=== PATIENT | male | born 1975 | race Caucasian/White ===

== ENCOUNTER 2016-08-12 18:54 | Emergency (ER) | payer SELFPAY ==
[~2016-08-12] VITALS: Wt 106.6 kg
[~2016-08-12 18:54] MED LIST: ACULAR 3ML 3 ML5 ML OPH; AMLODIPINE-OLM1 EAC1 PO; AMOXICILLIN500 M3 PO; AMOXICILLIN500 MG PO; ANAPROX DS550 MG PO; AUGMENTIN 875-875 MG PO; BACTRIM DS 8001 TA1 PO; CEPHALEXIN500 M1 PO; CLEOCIN HCL150 MG PO; DOXYCYCLINE HY100 M3 PO; FLEXERIL10 MG PO; FLEXERIL5 MG PO; HYDROCODONE BIT1 T11 PO; IBU-8800 MG PO; INDOCIN50 MG PO; INDOMETHACIN50 MG PO; MOTRIN800 MG PO; Motrin,Rufen800 MG PO; NAPROSYN500 MG PO; NKHM; NORCO 5-325 TA1 EACH PO; PEN-VEE K500 MG PO; PEN-VK500 MG PO; PREDNICOT20 MG PO; PREDNISONE20 MG PO; ROBITUSSIN AC 110 ML PO; TRAMADOL HCL50 MG PO; TYLENOL W/CODEI1 TA2 PO; ULTRAM50 MG PO; VICODIN 5/500 505 MG PO; ZITHROMAX Z PA250 MG PO
[2016-08-12] MEDS ORDERED: CEPHALEXIN500 M1 PO (19:25)
== END 2016-08-12 19:41 | disposition home or self-care (01) ==
LOC: ED 18:54
DX: S61.411A Laceration without foreign body of right hand, initial encounter (principal); F17.200 Nicotine dependence, unspecified, uncomplicated; W01.0XXA Fall on same level from slipping, tripping and stumbling without subsequent striking against object, initial encounter; Y93.89 Activity, other specified; Y92.9 Unspecified place or not applicable; Y99.9 Unspecified external cause status

== ENCOUNTER 2017-06-30 20:03 | Emergency (ER) | payer SELFPAY ==
[~2017-06-30] VITALS: Ht 180.3 cm; Wt 1.0 kg
[2017-06-30] MEDS ORDERED: NORCO 5-325 TA1 EACH PO (20:22)
[2017-06-30] MEDS ORDERED: AMOXICILLIN500 M2 PO (20:40)
[2017-06-30] MEDS ORDERED: NAPROSYN500 MG PO (20:41)
== END 2017-06-30 20:45 | disposition home or self-care (01) ==
LOC: ED 20:03
DX: K08.89 Other specified disorders of teeth and supporting structures (principal); F17.200 Nicotine dependence, unspecified, uncomplicated

== ENCOUNTER 2017-08-18 20:04 | Emergency (ER) | payer SELFPAY ==
[~2017-08-18] VITALS: Ht 180.3 cm; Wt 102.1 kg
[~2017-08-18 20:04] MED LIST changes: +AMOXICILLIN500 M2 PO
[2017-08-18] MEDS ORDERED: AMOXICILLIN500 M2 PO (20:22)
== END 2017-08-18 20:29 | disposition home or self-care (01) ==
LOC: ED 20:04
DX: K08.89 Other specified disorders of teeth and supporting structures (principal); F17.200 Nicotine dependence, unspecified, uncomplicated; Z98.890 Other specified postprocedural states

== ENCOUNTER 2017-10-10 04:07 | Emergency (ER) | payer SELFPAY ==
[~2017-10-10] VITALS: Ht 180.3 cm; Wt 106.6 kg
[2017-10-10] MEDS ORDERED: CLINDAMYCIN150 MG PO (04:16)
[2017-10-10] MEDS ORDERED: NAPROSYN500 MG PO (04:16)
== END 2017-10-10 04:42 | disposition home or self-care (01) ==
LOC: ED 04:07
DX: K02.9 Dental caries, unspecified (principal); F17.200 Nicotine dependence, unspecified, uncomplicated; Z98.890 Other specified postprocedural states

== ENCOUNTER 2017-10-13 16:37 | Emergency (ER) | payer SELFPAY ==
[~2017-10-13] VITALS: Ht 180.3 cm; Wt 106.6 kg
[~2017-10-13 16:37] MED LIST changes: +CLINDAMYCIN150 MG PO
[2017-10-13] MEDS ORDERED: CYCLOBENZAPRINE5 M3 PO (18:32)
== END 2017-10-13 18:40 | disposition home or self-care (01) ==
LOC: ED 16:37
DX: S29.011A Strain of muscle and tendon of front wall of thorax, initial encounter (principal); R07.81 Pleurodynia; Z98.890 Other specified postprocedural states; X50.1XXA Overexertion from prolonged static or awkward postures, initial encounter; Y93.89 Activity, other specified; Y92.69 Other specified industrial and construction area as the place of occurrence of the external cause; Y99.9 Unspecified external cause status

== ENCOUNTER 2017-11-21 19:31 | Emergency (ER) | payer SELFPAY ==
[~2017-11-21] VITALS: Ht 177.8 cm; Wt 106.6 kg
[~2017-11-21 19:31] MED LIST changes: +CYCLOBENZAPRINE5 M3 PO
[2017-11-21] MEDS ORDERED: DOXYCYCLINE100 M3 PO (19:42)
== END 2017-11-21 20:41 | disposition home or self-care (01) ==
LOC: ED 19:31
DX: H66.91 Otitis media, unspecified, right ear (principal); Z98.890 Other specified postprocedural states

== ENCOUNTER 2018-02-14 05:33 | Emergency (ER) | payer SELFPAY ==
[~2018-02-14] VITALS: Ht 177.8 cm; Wt 106.6 kg
[~2018-02-14 05:33] MED LIST changes: +DOXYCYCLINE100 M3 PO
[2018-02-14] MEDS ORDERED: CLEOCIN HCL300 MG PO (05:54)
== END 2018-02-14 06:05 | disposition home or self-care (01) ==
LOC: ED 05:33
DX: H66.90 Otitis media, unspecified, unspecified ear (principal); K08.89 Other specified disorders of teeth and supporting structures; K04.01 Reversible pulpitis; F10.10 Alcohol abuse, uncomplicated

== ENCOUNTER 2018-02-14 07:36 | Emergency (ER) | payer SELFPAY ==
[~2018-02-14] VITALS: Wt 106.6 kg
[~2018-02-14 07:36] MED LIST changes: +CLEOCIN HCL300 MG PO
== END 2018-02-14 08:47 | disposition home or self-care (01) ==
LOC: ED 07:36
DX: K02.9 Dental caries, unspecified (principal); F10.10 Alcohol abuse, uncomplicated

== ENCOUNTER 2018-05-29 05:17 | Emergency (ER) | payer MEDICAID ==
[~2018-05-29] VITALS: Ht 180.3 cm; Wt 108.9 kg
[2018-11-26] MEDS ORDERED: Motrin,Rufen800 MG PO (16:25)
== END 2018-05-29 05:38 | disposition home or self-care (01) ==
LOC: ED 05:17
DX: K02.9 Dental caries, unspecified (principal); Z79.2 Long term (current) use of antibiotics

== ENCOUNTER 2018-06-06 01:55 | Emergency (ER) | payer SELFPAY ==
[~2018-06-06] VITALS: Ht 180.3 cm; Wt 108.9 kg
[2018-06-06] MEDS ORDERED: PENICILLIN-VK500 M1 PO (02:37)
== END 2018-06-06 02:43 | disposition home or self-care (01) ==
LOC: ED 01:55
DX: K02.9 Dental caries, unspecified (principal); K04.01 Reversible pulpitis; M27.69 Other endosseous dental implant failure

== ENCOUNTER 2018-06-12 13:08 | Inpatient (IN) | payer OTHER ==
[~2018-06-12] VITALS: Ht 177.8 cm; Wt 122.1 kg
--- NOTE | ~2018-06-12 | EKG ---
[place], [place] ELECTROCARDIOGRAM REPORT NAME: SOPHIA GOLDBERG UNIT #: [id number] ROOM: 411 DOCTOR: MARÍA DRAFT REPORT BIRTHDATE: [birth year] [facility] Test Date: 2018-06-12 Test Time: 14:01:26 Pat Name: SOPHIA GOLDBERG Department: Room: 411 Gender: M Dispatch Coordinator: : 1975 Requested By: ALEXANDRA THORNTON Order Number: [id number] Reading MD: Measurements Intervals [place] Rate: 100 P: 75 MN: 161 QRS: 34 QRSD: 84 T: 46 QT: 336 QTc: 434 Interpretive Statements Sinus tachycardia No previous ECG available for comparison CM:EKGRPT:ELECTROCARDIOGRAM REPORT 1401 [id number] ALEXANDRA POLK DRAFT REPORT ALEXANDRA THORNTON DO
--- NOTE | ~2018-06-12 | CON ---
[place], [place] REPORT OF CONSULTATION NAME: SOPHIA GOLDBERG UNIT #: [id number] ROOM: 411 DOCTOR: BELLA FRANCIS DMD BIRTHDATE: [birth year] DOS: This consultation is for facial swelling. On exam, the patient was admitted yesterday for upper left facial swelling. The patient states today that swelling has improved and pain has as well. On exam, minimal facial swelling noted. No dyspnea or dysphagia. Intraoral exam shows extensive disrepair multiple teeth caries to the gumline. The patient had multiple teeth removed roughly a month ago in the mandibular left. Discussed treatment needed including full mouth extraction, alveoplasty and dentures. No intraoral abscess is noted nor fluctuant areas for drainage. Recommend extraction of offending teeth in the office for potential full mouth extraction under general. The patient is to look into insurance and contact the office for treatment. The patient is okay for dental discharge. BELLA FRANCIS DMD CM:CONSTR:REPORT OF CONSULTATION [id number] 06/14/18 1021 interface
[~2018-06-12 13:08] MED LIST changes: +PENICILLIN-VK500 M1 PO
[2018-06-12 13:09] VITALS: BP 210/141
[2018-06-12 13:23] VITALS: BP 182/98
--- NOTE | 2018-06-12 13:37 | NUR ---
Pt continues to pace in his room holding head.
[2018-06-12 14:04] LABS: BASO # 0.1 10*3/uL (0.0-0.1); BASO % 0.9 % (0.0-1.0); EOS # 0.3 10*3/uL (0.0-0.4); EOS % 2.6 % (1.0-4.0); HEMATOCRIT 47.1 % (42.0-52.0); LYMPH # 2.3 10*3/uL (1.3-4.4); LYMPH % 23.6 % (27.0-41.0); MEAN CELL VOLUME 95.9 fl (80.0-94.0); MEAN CORPUSCULAR HGB 32.6 pg (27.0-31.0); MEAN PLATELET VOLUME 11.4 fl (9.6-12.3); MONO # 0.7 10*3/uL (0.1-1.0); MONO % 7.3 % (3.0-9.0); NEUT # 6.4 10*3/uL (2.3-7.9); NEUT % 65.2 % (47.0-73.0); PLATELET COUNT AUTOMATED 224 10*3/uL (130-400); RED BLOOD COUNT 4.91 10*6/uL (4.50-5.90); RED CELL DISTRI WIDTH 13.8 % (0-14.5); WHITE BLOOD COUNT 9.7 10*3/uL (4.8-10.8)
--- NOTE | 2018-06-12 14:17 | NUR ---
Pt stated that the medication did not help his pain, rated pain as 10/10.
[2018-06-12 14:20] LABS: ACT PARTIAL THROMBO TIME 23.1 SECONDS (20.8-31.5); INTERNATIONAL NORM RATIO 0.9 (2.0-3.5)
--- NOTE | 2018-06-12 14:24 | NUR ---
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
[2018-06-12 14:26] LABS: ALBUMIN 3.9 gm/dl (3.1-4.5); ALKALINE PHOSPHATASE 74 U/L (45-117); BUN 16 mg/dl (7-24); CHLORIDE 105 mmol/L (98-107); CREATININE 1.01 mg/dL (0.70-1.30); LIPASE 201 U/L (73-393); POTASSIUM 4.1 mmol/L (3.5-5.1); SGOT/AST 14 IU/L (3-35); SGPT/ALT 28 U/L (12-78); SODIUM 139 mmol/L (136-145); TOTAL PROTEIN 7.6 gm/dL (6.4-8.2)
[2018-06-12 14:31] LABS: TROPONIN I < 0.015 ng/ml (<0.045)
--- NOTE | 2018-06-12 15:15 | NUR ---
Pt currently drinking Pepsi, no distress noted.
[2018-06-12 15:37] VITALS: BP 188/102
--- NOTE | 2018-06-12 15:37 | NUR ---
Time: 1536 A 42 year old MALE admitted to under services of MYLES DENG DO, Pt. arrived via bed from ER. Chief complaint: INTRACTABLE PAIN. FREIDA FULLER
--- NOTE | 2018-06-12 15:50 | NUR ---
GABBI INFORMED OF MEDICATION VERIFIED. ALSO, INFORMED OF CURRENT TOOTH PAIN OF 10 WITH MANUAL VX=281/102. STATES OK, MORPHINE PRN TO BE PROVIDED.
[2018-06-12 16:00] VITALS: BP 188/102
--- NOTE | 2018-06-12 16:00 | NUR ---
PATIENT MEDICATED WITH MORPHINE FOR C/O 10/10 LEFT SIDE TOOTH PAIN. WILL MONITOR. HEATED BLANKS PROVED TO SIDE OF FACE.
--- NOTE | 2018-06-12 17:00 | NUR ---
PATIENTLEFT SIDED DENTAL PAIN 8/10 DOWN FROM 02/08 WITH HELP FROM MORPHINE AND ICE. WILL MONITOR
--- NOTE | 2018-06-12 17:38 | NUR ---
LEFT BRIEF MESSAGE ON FOR NEW CONSULT. AWAITING CALL-BACK.
--- NOTE | 2018-06-12 17:52 | NUR ---
INFORMED OF CT MAXILLOFACIAL RESULTS AND INFORMED THAT PATIENT IS STILL HAVING PAIN 12/09 WITH NO RELIEF FROM PAIN MEDICATIONS. INQUIRED IF DENTAL BALL WOULD BE APPROPIATE AT THIS TIME. STATES HE WILL ORDER IT.
--- NOTE | 2018-06-12 19:47 | NUR ---
PATIENT MEDICATED WITH IV MORPHINE AND PO TYLENOL PER PRN ORDER FOR C/O PAIN IN L SIDE OF MOUTH RATED 12/10. WILL MONITOR EFFECTIVENESS.
[2018-06-12 20:00] VITALS: BP 177/115
[2018-06-12 20:15] VITALS: BP 168/108
--- NOTE | 2018-06-12 20:17 | NUR ---
PATIENT STATES EARLIER MEDICATIONS TOOK PAIN FROM 12 TO 8, BUT HE STATES HE IS STILL IN A GREAT DEAL OF PAIN. MANUAL BP 168/108. WILL NOTIFY
--- NOTE | 2018-06-12 20:23 | NUR ---
NOTIFIED OF PATIENT'S CONTINUED C/O PAIN IN MOUTH RATED 8/10 FOLLOWING IV MORPHINE AND PO TYLENOL ADMINISTRATION. ALSO DISCUSSED BP 168/108 MANUALLY.
--- NOTE | 2018-06-12 20:54 | NUR ---
IV TORADOL ADMINISTERED PER ONE TIME ORDER. PATIENT RATING PAIN 10/10. WILL MONITOR. CALL LIGHT IN REACH.
--- NOTE | 2018-06-12 21:35 | NUR ---
PATIENT STATES PAIN HAS GREATLY IMPROVED FOLLOWING IV TORADOL ADMINISTRATION. PATIENT STATES "IT DOESN'T HURT HARDLY AT ALL." WILL NOTIFY OF RESULTS WITH USE OF TORADOL. PATIENT'S GIRLFRIEND STILL IN ROOM AT THIS TIME. DISCUSSED HOSPITAL VISITATION POLICY AND POLITELY ASKED GIRLFRIEND TO LEAVE. STATES SHE DOES NOT HAVE RIDE HOME. OFFERED TO LET PATIENT STAY IN VISITOR'S LOBBY. PATIENT/GIRLFRIEND STATE THEY WILL MAKE SOME CALLS AND FIND HER A RIDE HOME.
--- NOTE | 2018-06-12 23:22 | NUR ---
IV MORPHINE ADMINISTERED PER PRN ORDER FOR C/O MOUTH PAIN 11/08. WILL MONITOR EFFECTIVENESS. CALL LIGHT IN REACH.
--- NOTE | 2018-06-12 23:36 | NUR ---
IV MORPHINE ADMINISTERED PER PRN ORDER FOR C/O MOUTH PAIN 11/08. WILL MONITOR EFFECTIVENESS. CALL LIGHT IN REACH.
--- NOTE | 2018-06-12 23:57 | NUR ---
NOTIFIED OF IV TORADOL WORKING BETTER THAN IV MORPHINE. WILL REVIEW ORDERS.
[2018-06-13] VITALS: BP 190/114
--- NOTE | 2018-06-13 03:06 | NUR ---
NOTIFIED OF PATIENT'S BP STILL 184/112 MANUALLY. IV TORADOL ADMINISTERED FOR PAIN IN MOUTH RATED 8/10. DISCUSSED OTHER PRN MEDICATIONS GIVEN WITHOUT DECREASE IN BLOOD PRESSURE. INSTRUCTED TO GIVE TIME FOR IV TORADOL TO WORK AND RECHECK BLOOD PRESSURE.
--- NOTE | 2018-06-13 03:42 | NUR ---
PATIENT STILL RATING PAIN 11/05. BP 178/114 MANUALLY. NOTIFIED. NEW ORDER RECEIVED FOR PO LISINOPRIL 10 MG DAILY WITH 1ST DOSE STARTING NOW.
[2018-06-13 03:45] VITALS: BP 178/114
[2018-06-13 06:34] LABS: ALBUMIN 3.4 gm/dl (3.1-4.5); BUN 17 mg/dl (7-24); CHLORIDE 106 mmol/L (98-107); CHOLESTEROL 188 mg/dL (<200); CREATININE 0.78 mg/dL (0.70-1.30); PHOSPHOROUS 2.9 mg/dL (2.5-4.9); POTASSIUM 3.6 mmol/L (3.5-5.1); SGOT/AST 15 IU/L (3-35); SGPT/ALT 27 U/L (12-78); SODIUM 138 mmol/L (136-145); TOTAL PROTEIN 6.8 gm/dL (6.4-8.2); TRIGLYCERIDES 262 mg/dl (<150); VLDL CHOLESTEROL 52 mg/dL (6-40)
[2018-06-13 06:36] LABS: BASO # 0.1 10*3/uL (0.0-0.1); BASO % 0.9 % (0.0-1.0); EOS # 0.2 10*3/uL (0.0-0.4); EOS % 2.9 % (1.0-4.0); LYMPH # 2.2 10*3/uL (1.3-4.4); LYMPH % 26.9 % (27.0-41.0); MEAN CELL VOLUME 94.8 fl (80.0-94.0); MEAN CORPUSCULAR HGB 32.2 pg (27.0-31.0); MEAN PLATELET VOLUME 11.9 fl (9.6-12.3); MONO # 0.6 10*3/uL (0.1-1.0); MONO % 7.4 % (3.0-9.0); NEUT # 5.1 10*3/uL (2.3-7.9); NEUT % 61.7 % (47.0-73.0); PLATELET COUNT AUTOMATED 181 10*3/uL (130-400); RED BLOOD COUNT 4.25 10*6/uL (4.50-5.90); RED CELL DISTRI WIDTH 13.8 % (0-14.5); WHITE BLOOD COUNT 8.2 10*3/uL (4.8-10.8)
[2018-06-13 06:37] LABS: HEMATOCRIT 40.3 % (42.0-52.0); HEMOGLOBIN 13.7 g/dl (14.0-18.0)
[2018-06-13 06:40] LABS: ALKALINE PHOSPHATASE 63 U/L (45-117); FREE T4 1.03 ng/dl (0.76-1.46); HDL CHOLESTEROL 34 mg/dl (40-60); LDL CHOLESTEROL 102 mg/dL (9-159); THYROID STIM HORMONE (HS) 0.838 uIU/ml (0.358-4.75)
[2018-06-13 07:19] LABS: VITAMIN D, 25-HYDROXY 14.1 ng/mL (30-100)
--- NOTE | 2018-06-13 07:50 | NUR ---
spoke with and he will be in to see patient this morning. pt placed on monitor and will be given iv lopressor per geo wang's order for htn
[2018-06-13 08:00] VITALS: BP 160/102
--- NOTE | 2018-06-13 08:30 | NUR ---
PT GIVEN IV LOPRESSOR VERY SLOWLY PER ORDER, WILL MONITOR EFFECTIVENESS ALEXIS GORDON
--- NOTE | 2018-06-13 09:00 | NUR ---
Third Rail Installer in to talk to patient. Patient states lives at home with friend. There are few steps in the home. Physician: none Pharmacy: [facility] [place] [facility]: none Patient's level of ADLs: INDEPENDENT Patient has working utilities: all working DME: none Follow-up physician's appointment after d/c: will be made by hospitalist nurse director upon discharge Does patient want to access PORTAL?: no Discharge plan discussed with patient, patient lives at home, is independent in adls and ambulation, patient states he will be going home when able, discussed with him not having any insurance and he stated someone talked to him will help him fill out paperwork to help with the hospital stay. patient states he will need help with paying for medications, his scripts will be sent to the [facility] and will be paid for, no other needs at this time. PATY MICHAEL
--- NOTE | 2018-06-13 09:05 | NUR ---
MEDICATED FOR C/O PAIN IN BOTH CHEEKS, PT RATES PAIN A 7 AT PRESENT, MANUELITO DANGELO IN TO SEE PT ALEXIS JALLOHCC
[2018-06-13 09:08] VITALS: BP 158/98
--- NOTE | 2018-06-13 10:00 | NUR ---
PATIENTS PAIN LEVEL IS A 4 OUT OF 10 NO DISCOMFORT AT TIME OF ASSESSMENT ALEXIS STEPHENSU.RCC
--- NOTE | 2018-06-13 10:16 | NUR ---
PT SEEN BY . TIRE TESTER ARE WORKING ON GETTING PATIENT HELP WITH INSURANCE BECAUSE HE IS SELF PAY. STATES PATIENT CAN SEE HIM IN THE OFFICE AND WILL NEED MULTIPLE TEETH EXCTRACTIONS. OK TO RESUME DIET AT THIS TIME.
--- NOTE | 2018-06-13 10:47 | NUR ---
PATIENT WILL EAT AND SHOWER ONCE HOME BEING DISCHARGED TODAY NO COMPLAINTS AT THIS TIME ALEXIS ALTAMIRANO.RCC
[2018-06-13] MEDS ORDERED: CLINDAMYCIN HC300 MG PO (11:31)
[2018-06-13] MEDS ORDERED: LISINOPRIL10 M1 PO (11:31)
[2018-06-13 11:45] VITALS: BP 140/82
[2018-06-13 12:00] VITALS: BP 130/82
--- NOTE | 2018-06-13 13:05 | NUR ---
IV D/C'D, [facility]
--- NOTE | 2018-06-13 13:45 | NUR ---
Discharge instructions reviewed with patient/family. Patient receptive and verbalizes understanding. Follow-up care arranged. Written instructions given to patient/family, condition stable PATY MATTA
[2018-11-26] MEDS ORDERED: Motrin,Rufen800 MG PO (16:25)
== END 2018-06-13 13:45 | disposition home or self-care (01) | DRG 305 ==
LOC: ED 13:08 → EDHOLD 15:00 → 4E 15:13
PROVIDERS: Emergency Medicine; Registered Nurse; ADMIT Internal Medicine
DX: I16.0 Hypertensive urgency (principal); K02.9 Dental caries, unspecified; K08.89 Other specified disorders of teeth and supporting structures; F17.200 Nicotine dependence, unspecified, uncomplicated; R00.0 Tachycardia, unspecified; Z72.89 Other problems related to lifestyle; Z80.8 Family history of malignant neoplasm of other organs or systems

== ENCOUNTER 2018-06-15 20:43 | Emergency (ER) | payer OTHER ==
[~2018-06-15] VITALS: Ht 180.3 cm; Wt 117.9 kg
[~2018-06-15 20:43] MED LIST changes: +CLINDAMYCIN HC300 MG PO; +LISINOPRIL10 M1 PO
[2018-11-26] MEDS ORDERED: Motrin,Rufen800 MG PO (16:25)
== END 2018-06-15 21:13 | disposition home or self-care (01) ==
LOC: ED 20:43
DX: T28.0XXA Burn of mouth and pharynx, initial encounter (principal); F17.200 Nicotine dependence, unspecified, uncomplicated; Z98.890 Other specified postprocedural states; Z79.899 Other long term (current) drug therapy; X12.XXXA Contact with other hot fluids, initial encounter; Y93.89 Activity, other specified; Y92.89 Other specified places as the place of occurrence of the external cause; Y99.9 Unspecified external cause status

== ENCOUNTER → 2019-01-31 | Outpatient (CLI) | payer OTHER ==
[~2019-01-31] MED LIST changes: +CIPRO500 MG PO; +NORCO 10-325 T1 EACH PO; +OFLOXACIN 10 ML10 M2 OT
[2019-02-01 14:07] LABS: CREATININE,URINE 136.7 mg/dL (Not Estab.); MICRO ALBUMIN/CRE RATIO 3.5 (0.0-30.0)
== END | disposition home or self-care (01) ==
LOC: RESCLI 02:14
PROVIDERS: Internal Medicine
DX: I10 Essential (primary) hypertension (principal); E55.9 Vitamin D deficiency, unspecified; E66.01 Morbid (severe) obesity due to excess calories; F17.210 Nicotine dependence, cigarettes, uncomplicated; Z79.899 Other long term (current) drug therapy

== ENCOUNTER 2019-02-03 15:12 | Emergency (ER) | payer OTHER ==
[~2019-02-03] VITALS: Ht 180.3 cm; Wt 112.5 kg
[~2019-02-03 15:12] MED LIST changes: -CIPRO500 MG PO; -NORCO 10-325 T1 EACH PO; -OFLOXACIN 10 ML10 M2 OT
[2019-02-03] MEDS ORDERED: OFLOXACIN 10 ML10 M2 OT (15:30)
[2019-02-03] MEDS ORDERED: NORCO 10-325 T1 EACH PO (15:32)
[2019-02-03] MEDS ORDERED: CIPRO500 MG PO (15:33)
== END 2019-02-03 15:35 | disposition home or self-care (01) ==
LOC: ED 15:12
DX: H60.92 Unspecified otitis externa, left ear (principal); Z72.0 Tobacco use

== ENCOUNTER 2019-03-20 13:34 | Emergency (ER) | payer OTHER ==
[~2019-03-20] VITALS: Ht 180.3 cm; Wt 108.9 kg
[~2019-03-20 13:34] MED LIST changes: +CIPRO500 MG PO; +NORCO 10-325 T1 EACH PO; +OFLOXACIN 10 ML10 M2 OT
== END 2019-03-20 16:55 | disposition left against medical advice (07) ==
LOC: ED 13:34
DX: M79.671 Pain in right foot (principal); I10 Essential (primary) hypertension; F17.200 Nicotine dependence, unspecified, uncomplicated; Z79.899 Other long term (current) drug therapy; Z79.2 Long term (current) use of antibiotics; X58.XXXA Exposure to other specified factors, initial encounter; Y93.89 Activity, other specified; Y92.89 Other specified places as the place of occurrence of the external cause; Y99.8 Other external cause status

== ENCOUNTER 2019-04-10 15:08 | Emergency (ER) | payer OTHER ==
[~2019-04-10] VITALS: Ht 180.3 cm; Wt 108.9 kg
--- NOTE | ~2019-04-10 | EKG ---
[place], [place] ELECTROCARDIOGRAM REPORT NAME: SOPHIA GOLDBERG UNIT #: [id number] ROOM: DOCTOR: MARÍA DRAFT REPORT BIRTHDATE: [birth year] [facility] Test Date: 2019-04-10 Test Time: 15:43:35 Pat Name: SOPHIA GOLDBERG Department: Room: Gender: Tinner Automatic: : 1975 Requested By: AXEL CAZARES PA-C Order Number: [id number] Reading MD: Measurements Intervals [place] Rate: 96 P: 42 MN: 175 QRS: -8 QRSD: 84 T: 29 QT: 341 QTc: 431 Interpretive Statements Sinus rhythm ST elev, probable normal early repol pattern Baseline wander in lead(s) V4 Compared to ECG 06/12/2018 14:01:26 ST (T wave) deviation now present Sinus tachycardia no longer present CM:EKGRPT:ELECTROCARDIOGRAM REPORT 1543 1246 AXEL CAZARES PA-C EPIPHANY DRAFT REPORT AXEL CAZARES PA-C
[2019-04-10 15:51] LABS: BASO # 0.1 10*3/uL (0.0-0.1); BASO % 0.6 % (0.0-1.0); EOS # 0.1 10*3/uL (0.0-0.4); EOS % 1.1 % (1.0-4.0); HEMATOCRIT 46.4 % (42.0-52.0); HEMOGLOBIN 15.4 g/dl (14.0-18.0); LYMPH # 2.1 10*3/uL (1.3-4.4); LYMPH % 16.9 % (27.0-41.0); MEAN CELL VOLUME 95.1 fl (80.0-94.0); MEAN CORPUSCULAR HGB 31.6 pg (27.0-31.0); MEAN CORPUSCULAR HGB CONC 33.2 g/dl (33.0-37.0); MEAN PLATELET VOLUME 11.5 fl (9.6-12.3); MONO # 0.8 10*3/uL (0.1-1.0); MONO % 6.6 % (3.0-9.0); NEUT # 9.1 10*3/uL (2.3-7.9); NEUT % 74.5 % (47.0-73.0); PLATELET COUNT AUTOMATED 178 10*3/uL (130-400); RED BLOOD COUNT 4.88 10*6/uL (4.50-5.90); RED CELL DISTRI WIDTH 13.3 % (0-14.5); WHITE BLOOD COUNT 12.3 10*3/uL (4.8-10.8)
[2019-04-10 16:00] LABS: INTERNATIONAL NORM RATIO 0.9 (2.0-3.5)
[2019-04-10 16:07] LABS: ALKALINE PHOSPHATASE 74 U/L (45-117); BUN 13 mg/dl (7-24); CHLORIDE 105 mmol/L (98-107); CREATININE 0.98 mg/dL (0.70-1.30); POTASSIUM 3.9 mmol/L (3.5-5.1); SGOT/AST 22 IU/L (3-35); SGPT/ALT 33 U/L (12-78); SODIUM 137 mmol/L (136-145); TOTAL PROTEIN 7.8 gm/dL (6.4-8.2)
[2019-04-10 16:08] LABS: TROPONIN I < 0.015 ng/ml (<0.045)
[2019-04-10] MEDS ORDERED: NAPROSYN500 MG PO (16:54)
== END 2019-04-10 16:58 | disposition home or self-care (01) ==
LOC: ED 15:08
PROVIDERS: Physician Assistant
DX: R07.89 Other chest pain (principal); I10 Essential (primary) hypertension; Z72.0 Tobacco use

== ENCOUNTER → 2019-05-17 | Outpatient (CLI) | payer OTHER | END | disposition home or self-care (01) | LOC: RESCLI 01:22 | DX: Z13.31 Encounter for screening for depression (principal); Z13.39 Encounter for screening examination for other mental health and behavioral disorders; Z71.6 Tobacco abuse counseling; Z71.3 Dietary counseling and surveillance; E55.9 Vitamin D deficiency, unspecified; I10 Essential (primary) hypertension; E66.9 Obesity, unspecified; Z72.0 Tobacco use; Z79.899 Other long term (current) drug therapy ==

== ENCOUNTER 2019-06-04 22:01 | Emergency (ER) | payer OTHER ==
[~2019-06-04] VITALS: Wt 113.4 kg
== END 2019-06-04 23:40 | disposition home or self-care (01) ==
LOC: ED 22:01
DX: M79.671 Pain in right foot (principal); I10 Essential (primary) hypertension; F17.200 Nicotine dependence, unspecified, uncomplicated; Z79.899 Other long term (current) drug therapy; Z79.2 Long term (current) use of antibiotics

== ENCOUNTER → 2019-06-07 | Outpatient (CLI) | payer OTHER | LOC: US 14:24 | DX: M79.661 Pain in right lower leg (principal); R60.0 Localized edema ==

== ENCOUNTER 2021-03-16 22:32 | Emergency (ER) | payer OTHER ==
[~2021-03-16] VITALS: Ht 180.3 cm; Wt 106.6 kg
== END 2021-03-17 02:06 | disposition left against medical advice (07) ==
LOC: ED 22:32
DX: M25.559 Pain in unspecified hip (principal); Z53.21 Procedure and treatment not carried out due to patient leaving prior to being seen by health care provider

== ENCOUNTER 2021-03-26 21:39 | Emergency (ER) | payer OTHER ==
[~2021-03-26] VITALS: Ht 180.3 cm; Wt 106.6 kg
[2021-03-26] MEDS ORDERED: NAPROXEN500 M1 PO (23:07)
== END 2021-03-26 23:40 | disposition home or self-care (01) ==
LOC: ED 21:39
DX: M25.552 Pain in left hip (principal)

== ENCOUNTER 2021-11-28 07:08 | Emergency (ER) | payer OTHER ==
[~2021-11-28] VITALS: Ht 177.8 cm; Wt 111.1 kg
[~2021-11-28 07:08] MED LIST changes: +NAPROXEN500 M1 PO
== END 2021-11-28 08:07 | disposition home or self-care (01) ==
LOC: ED 07:08
DX: K40.90 Unilateral inguinal hernia, without obstruction or gangrene, not specified as recurrent (principal); I10 Essential (primary) hypertension; E66.9 Obesity, unspecified; F17.200 Nicotine dependence, unspecified, uncomplicated

== ENCOUNTER 2024-12-15 21:02 | Emergency (ER) | payer SELFPAY ==
[2024-12-15] MEDS ORDERED: Sulfamethoxazole/Trimethopri 1 TAB TAB PO ONE (21:45)
[2024-12-15] MEDS ORDERED: SEPTDS PO (22:12)
[2024-12-15] MEDS ORDERED: PREDNISONE20 M1 PO (22:12)
== END 2024-12-15 22:14 | disposition home or self-care (01) ==
LOC: ED 21:02
DX: L23.89 Allergic contact dermatitis due to other agents (principal); L03.114 Cellulitis of left upper limb; L03.113 Cellulitis of right upper limb; L03.221 Cellulitis of neck; F17.200 Nicotine dependence, unspecified, uncomplicated; Z79.899 Other long term (current) drug therapy; Z98.890 Other specified postprocedural states

== ENCOUNTER 2025-04-26 16:50 | Emergency (ER) | payer SELFPAY ==
[~2025-04-26] VITALS: Ht 180.3 cm; Wt 122.5 kg
[~2025-04-26 16:50] MED LIST changes: +PREDNISONE20 M1 PO; +SEPTDS PO
[2025-04-26] MEDS ORDERED: SODIUM CHLORIDE 0.9% 1,000 ML IV ONE (17:25)
[2025-04-26 17:37] LABS: BASO # 0.1 10*3/uL (0.0-0.1); BASO % 0.8 % (0.0-1.0); EOS # 0.2 10*3/uL (0.0-0.4); EOS % 1.5 % (1.0-4.0); MEAN CELL VOLUME 93.6 fl (80.0-94.0); MEAN CORPUSCULAR HGB 32.0 pg (27.0-31.0); MEAN PLATELET VOLUME 12.0 fl (9.6-12.3); MONO # 0.6 10*3/uL (0.1-1.0); MONO % 6.0 % (3.0-9.0); NEUT # 7.5 10*3/uL (2.3-7.9); NEUT % 73.9 % (47.0-73.0); NUCLEATED RED BLOOD CELL 0.0 % (0.0-0.0); NUCLEATED RED BLOOD CELL 0.0 10*3/uL (0.0-0.0); PLATELET COUNT AUTOMATED 168 10*3/uL (130-400); RED CELL DISTRI WIDTH 12.6 % (0-14.5)
[2025-04-26 17:48] LABS: ACT PARTIAL THROMBO TIME 27.2 SECONDS (20.0-32.1)
[2025-04-26 18:00] LABS: BUN 14 mg/dl (9-23)
[2025-04-26] MEDS ORDERED: IOHEXOL 300 MG/ML 100 ML VIAL IV ONE (18:10)
== END 2025-04-26 19:21 | disposition home or self-care (01) ==
LOC: ED 16:50
PROVIDERS: Internal Medicine
DX: K40.90 Unilateral inguinal hernia, without obstruction or gangrene, not specified as recurrent (principal); R10.9 Unspecified abdominal pain; I10 Essential (primary) hypertension; Z98.890 Other specified postprocedural states